=== PATIENT | female | born 1975 | race Two or more races ===

== ENCOUNTER 2017-06-04 19:48 | Emergency (ER) | payer OTHER, SELFPAY ==
[~2017-06-04] VITALS: Ht 160 cm; Wt 81.7 kg
[2017-06-04] MEDS ORDERED: IBUPROFEN200 M1 PO (20:06)
[2017-06-04] MEDS ORDERED: ZOFRAN ODT4 MG PO (22:44)
[2017-06-04] MEDS ORDERED: PROTONIX40 MG PO (22:44)
== END 2017-06-04 23:10 | disposition home or self-care (01) ==
LOC: ED 19:48
DX: K29.00 Acute gastritis without bleeding (principal)
CPT/HCPCS: 80053; 81001; 83690; 84703; 85025; 87088; 96374; 96375; 99283; J1170; J2405; J7030

== ENCOUNTER 2017-08-30 00:22 | Emergency (ER) | payer SELFPAY ==
[~2017-08-30] VITALS: Ht 160 cm; Wt 78.0 kg
[~2017-08-30 00:22] MED LIST: IBUPROFEN200 M1 PO; PROTONIX40 MG PO; ZOFRAN ODT4 MG PO
[2017-08-30] MEDS ORDERED: OMEPRAZOLE20 MG PO (01:43)
== END 2017-08-30 01:50 | disposition home or self-care (01) ==
LOC: ED 00:22
DX: K30 Functional dyspepsia (principal); K29.70 Gastritis, unspecified, without bleeding; K21.9 Gastro-esophageal reflux disease without esophagitis; Z79.899 Other long term (current) drug therapy
CPT/HCPCS: 80053; 81001; 83690; 84703; 85025; 96374; 96375; 99283; J1170; J2405; J7030